=== PATIENT | male | born 1945 | race Caucasian/White ===

== ENCOUNTER 2017-02-05 17:06 | Emergency (ER) | payer MEDICARE, BC ==
[2017-02-05 17:25] VITALS: BP 154/64
--- NOTE | 2017-02-05 18:02 | UC ---
Complaint Male HPI - HPI Summary HPI Summary: ONSET OF BECKY HEMATURIA THIS MORNING WITH CLOTS. NO DYSURIA. HAS SOME URINARY FREQUENCY AND URGENCY AT BASELINE THAT HE FEELS MAY BE A BIT WORSE THAN NORMAL. HAS HAD SOME INTERMITTENT BACK PAIN FOR SEVERAL WEEKS THAT RESOLVES WITH MASSAGE. STARTED PIOGLITAZONE ABOUT 4 WEEKS AGO FOR HIS DIABETES. STATES HIS PCP ADVISED HIM THAT HE HAS PROTEIN IN HIS URINE ABOUT 6 MONTHS AGO. PT USED TO SEE UROLOGIST IN [place] FOR HIS PROSTATE CANCER BUT WILL BE TRANSFERRING CARE TO LOCAL UROLOGIST. - History of Current Complaint Chief Complaint: UCGU Stated Complaint: BLOOD IN URINE Time Seen by Provider: 02/05/17 17:32 Hx Obtained From: Patient, Family/Mechanical Intern - DAUGHTER Onset/Duration: Sudden Onset, Lasting Hours, Still Present Severity Initially: Moderate Severity Currently: Moderate Pain Intensity: 0 Pain Scale Used: 0-10 Numeric Aggravating Factor(s): Nothing Alleviating Factor(s): Nothing Associated Signs And Symptoms: Positive: Back Pain, Hematuria - Allergies/Home Medications Allergies/Adverse Reactions: Allergies Allergy/AdvReac Type Severity Reaction Status Date / Time No Known Allergies Allergy Verified 02/05/17 17:25 Home Medications: Home Medications Aspirin Low Dose CHEW TAB* [Aspirin Low Dose TAB*] 81 mg PO DAILY 02/05/17 [ History Confirmed 02/05/17] Pioglitazone TAB* [Actos TAB*] 30 mg PO DAILY 02/05/17 [History Confirmed ] Rosuvastatin Calcium [Crestor] 40 mg PO DAILY 02/05/17 [History Confirmed ] Valsartan TAB* [Diovan TAB*] 320 mg PO DAILY 02/05/17 [History Confirmed ] metFORMIN* [Glucophage 500 MG TAB *] 500 mg PO BID 02/05/17 [History Confirmed 02/05/17] PMH/Surg Hx/FS Hx/Imm Hx Endocrine History: Diabetes Cardiovascular History: Cardiac Disease, Hypertension Cancer History: Prostate Cancer - Surgical History Surgical History: Yes Surgery Procedure, Year, and Place: PROSTATECTOMY, RIGHT MIDDLE FINGER AMPUTATION, VASECTOMY AND REVERSAL, DENTAL SURGERY - Family History Known Family History: Positive: Hypertension - Social History Alcohol Use: Occasionally Substance Use Type: None Smoking Status (MU): Never Smoked Tobacco Review of Systems Constitutional: Negative Skin: Negative Respiratory: Negative Cardiovascular: Negative Gastrointestinal: Negative Genitourinary: Hematuria, Frequency, Urgency Musculoskeletal: Other: - INTERMITTENT LOW BACK PAIN All Other Systems Reviewed And Are Negative: Yes Physical Exam Triage Information Reviewed: Yes Appearance: Well-Appearing, No Pain Distress, Well-Nourished Vital Signs: Initial Vital Signs Temp 97.5 F 02/05/17 17:19 Pulse 66 02/05/17 17:19 Resp 16 02/05/17 17:19 BP 154/64 02/05/17 17:19 Pulse Ox 99 02/05/17 17:19 Vital Signs Reviewed: Yes Eyes: Positive: Conjunctiva Clear ENT: Positive: Hearing grossly normal Neck: Positive: Supple Respiratory Exam: Normal Cardiovascular Exam: Normal Abdomen Description: Positive: Nontender, Soft. Negative: CVA Tenderness (R), CVA Tenderness (L), Distended, Guarding Bowel Sounds: Positive: Present Musculoskeletal: Positive: No Edema Neurological: Positive: Alert Psychological: Positive: Normal Response To Family, Age Appropriate Behavior Skin: Negative: rashes Diagnostics - Laboratory Diagnostic Studies Completed/Ordered: URINE DIP SP. GR 1.005, 2+ PROTEIN, 3+ BLOOD Complaint Male Course/Dx - Course Course Of Treatment: ADVISED TO GO DIRECTLY TO THE ER FOR FURTHER EVALUATION. - Differential Dx/Diagnosis Differential Diagnosis/HQI/PQRI: Cancer, Trauma, Ureteral Calculi, Urinary Tract Infection Provider Diagnoses: GROSS HEMATURIA Discharge - Discharge Plan Condition: Stable Disposition: OTHER Discharge Disposition Comment: GO DIRECTLY TO [facility] Patient Education Materials: Hematuria (ED) Referrals: Osiris Mora MD [Primary Care Provider] - If Needed Additional Instructions: YOU HAVE BECKY BLOOD IN YOUR URINE. THIS NEEDS TO BE FURTHER EVALUATED. PLEASE GO DIRECTLY TO THE ER.
== END 2017-02-05 18:54 ==
LOC: UCEAST 17:06
DX: R31.9 Hematuria, unspecified (principal); E11.9 Type 2 diabetes mellitus without complications; Z79.84 Long term (current) use of oral hypoglycemic drugs; I10 Essential (primary) hypertension; I51.9 Heart disease, unspecified
CPT/HCPCS: 81003; 99211; G0463

== ENCOUNTER 2017-02-05 19:14 | Emergency (ER) | payer MEDICARE, BC ==
[2017-02-05] MEDS ORDERED: NS 0.9% 1000 ML* 1,000 ML IV ONE ×2 (20:00→20:28)
[2017-02-05 20:39] LABS: Urine Bacteria 1+ (Absent); Urine Bilirubin Negative (Negative); Urine Glucose Negative (Negative); Urine Nitrite Negative (Negative)
--- NOTE | 2017-02-05 21:02 | RAD ---
INDICATION: Hematuria noticed today. COMPARISON: March 17, 2015 lumbar spine radiographs TECHNIQUE: Multidetector CT images were obtained from the lung bases to the ischial tuberosities. Evaluation of the viscera is limited without IV contrast. Multiplanar reformation. REPORT: Unremarkable visualized inferior thorax. A few small water density hepatic cysts are noted. No suspicious hepatic lesions evident within limits of noncontrast CT. No CT abnormality of the unenhanced gallbladder or pancreas. Small calcified granulomas at the spleen. Negative for CT abnormality of the upper GI, small bowel, or retro to infra cecal appendix. Mild colonic diverticulosis without evidence for acute diverticulitis. Negative for ascites, free air, hernias. Normal adrenal glands. Unremarkable kidneys. Negative for nephrolithiasis or hydronephrosis. Unremarkable nondilated ureters. Multiple phleboliths visualized adjacent to the distal ureters. 2.9 x 4.2 x 4.0 cm LEFT para midline posterior urinary bladder diverticulum above the level of the ureterovesicular junction. Minimal reticulation of the surrounding pelvic fat. Negative for gas within the urinary bladder. Generalized mild prominence of the urinary bladder wall. Post prostatectomy. Negative for lymphadenopathy. Atherosclerotic calcification of normal diameter abdominal aorta and iliac arteries. Physiologic distention of the IVC. Unchanged grade 2 degenerative L4-L5 anterolisthesis. Advanced L4-L5 degenerative spondylosis with associated reactive endplate change. No suspicious focal osseous lesions evident. IMPRESSION: 1. Negative for urolithiasis or hydronephrosis. 2. 2.9 x 4.2 x 4.0 cm LEFT para midline posterior urinary bladder diverticulum above the level of the ureterovesicular junction. Minimal reticulation of the surrounding pelvic fat. Negative for gas within the urinary bladder. Generalized mild prominence of the urinary bladder wall. Consider cystitis. Correlate with urinalysis.
[2017-02-05 21:24] LABS: Hematocrit 39 % (42-52); Hemoglobin 12.9 g/dl (14.0-18.0); Mean Corpuscular HGB Conc 33 g/dl (31-36); Mean Corpuscular Hemoglobin 31 pg (27-31); Mean Corpuscular Volume 93 fL (80-94); Mean Platelet Volume 8 um3 (7.4-10.4); Red Blood Count 4.14 10^6/ul (4.0-5.4); Red Cell Distribution Width 13 % (10.5-15); White Blood Count 4.6 10^3/ul (3.5-10.8)
[2017-02-05 21:42] LABS: ALT 24 U/L (7-52); AST 19 U/L (13-39); Albumin 3.9 g/dL (3.2-5.2); Alkaline Phosphatase 43 U/L (34-104); Anion Gap 6 mmol/L (2-11); Blood Urea Nitrogen 19 mg/dL (6-24); C Reactive Protein < 1.00 mg/L (< 5.00); CO2 Carbon Dioxide 27 mmol/L (22-32); Calcium 9.2 mg/dL (8.6-10.3); Chloride 103 mmol/L (101-111); EGFR African American 94.7 (>60); EGFR Non-African American 73.7 (>60); Globulin 2.6 g/dL (2-4); Glucose 89 mg/dL (70-100); Sodium 136 mmol/L (133-145); Total Protein 6.5 g/dL (6.4-8.9)
[2017-02-05] MEDS ORDERED: Iodixanol* (CONTRAST) 320 MG/ML 100 ML SDV IV ONE (21:49)
[2017-02-05] MEDS ORDERED: Ciprofloxacin TAB* 500 MG PO ONE (23:48)
--- NOTE | 2017-02-05 23:56 | ED ---
I, Oh,Cristela, scribed for Gisel Rivers MD on 02/05/17 at 1957 . GI/ HPI - HPI Summary HPI Summary: This 72 y/o male presents to ED for "bright red" hematuria that was noticed this morning. Negative dysuria. Pt was evaluated at [facility] and had urine dip stick done. Pt was sent to ED for further UA and blood work. PMHx includes prostate CA s/p removal, HTN, and vasectomy. Pt is currently on baby blood ASA, but not on any other blood thinner. Primary care involves Dr. Mora and Dr. Gleason. FHx is positive for HTN. Pt lives with his . He is rare drinker and nonsmoker. - History of Current Complaint Chief Complaint: EDUrogenitalProblems Stated Complaint: BLOOD IN URINE Hx Obtained From: Patient, Medical Records Onset/Duration: Started Hours Ago, Atraumatic, Still Present Timing: Constant Pain Intensity: 0 Associated Signs and Symptoms: Negative: Fever, Dysuria Aggravating Factor(s): Nothing Alleviating Factor(s): Nothing - Allergy/Home Medications Allergies/Adverse Reactions: Allergies Allergy/AdvReac Type Severity Reaction Status Date / Time No Known Allergies Allergy Verified 02/05/17 17:25 PMH/Surg Hx/FS Hx/Imm Hx Endocrine/Hematology History: Reports: Hx Diabetes Cardiovascular History: Reports: Hx Hypertension Musculoskeletal History: Denies: Hx Scoliosis Neurological History: Denies: Hx Headaches, Other Neuro Impairments/Disorders - Cancer History Cancer Type, Location and Year: PROSTATE CA - Surgical History Surgery Procedure, Year, and Place: PROSTATECTOMY, RIGHT MIDDLE FINGER AMPUTATION, VASECTOMY AND REVERSAL, DENTAL SURGERY Infectious Disease History: Denies: Traveled Outside the [place] in Last 30 Days - Family History Known Family History: Positive: Hypertension - Social History Alcohol Use: Occasionally Substance Use Type: Reports: None Smoking Status (MU): Never Smoked Tobacco Review of Systems Negative: Fever Positive: hematuria. Negative: dysuria All Other Systems Reviewed And Are Negative: Yes Physical Exam Triage Information Reviewed: Yes Vital Signs On Initial Exam: Initial Vitals Temp Pulse Resp BP Pulse Ox 98.2 F 57 14 151/65 100 02/05/17 19:22 02/05/17 19:22 02/05/17 19:22 02/05/17 19:22 02/05/17 19:22 Vital Signs Reviewed: Yes Appearance: Positive: Well-Appearing, No Pain Distress Skin: Positive: Warm, Skin Color Reflects Adequate Perfusion, Dry Head/Face: Positive: Normal Head/Face Inspection Eyes: Positive: EOMI, DAO Neck: Positive: Supple, Nontender Respiratory/Lung Sounds: Positive: Clear to Auscultation, Breath Sounds Present Cardiovascular: Positive: RRR Abdomen Description: Positive: Nontender, Soft Musculoskeletal: Positive: Strength/ROM Intact Neurological: Positive: Sensory/Motor Intact, Alert, Oriented to Person Place, Time Psychiatric: Positive: Affect/Mood Appropriate AVPU Assessment: Alert Diagnostics - Vital Signs Vital Signs Temp Pulse Resp BP Pulse Ox 02/05/17 19:22 98.2 F 57 14 151/65 100 - Laboratory Lab Results: Lab Results 02/05/17 02/05/17 02/05/17 Range/Units 20:26 21:16 21:16 WBC 4.6 (3.5-10.8) 10^3/ul RBC 4.14 (4.0-5.4) 10^6/ul Hgb 12.9 L (14.0-18.0) g/dl Hct 39 L (42-52) % MCV 93 (80-94) fL MCH 31 (27-31) pg MCHC 33 (31-36) g/dl RDW 13 (10.5-15) % Plt Count 163 (150-450) 10^3/ul MPV 8 (7.4-10.4) um3 Sodium 136 (133-145) mmol/L Potassium 4.0 (3.5-5.0) mmol/L Chloride 103 (101-111) mmol/L Carbon Dioxide 27 (22-32) mmol/L Anion Gap 6 (2-11) mmol/L BUN 19 (6-24) mg/dL Creatinine 1.00 (0.67-1.17) mg/dL Est GFR ( Amer) 94.7 (>60) Est GFR (Non-Af Amer) 73.7 (>60) BUN/Creatinine Ratio 19.0 (8-20) Glucose 89 (70-100) mg/dL Calcium 9.2 (8.6-10.3) mg/dL Total Bilirubin 0.50 (0.2-1.0) mg/dL AST 19 (13-39) U/L ALT 24 (7-52) U/L Alkaline Phosphatase 43 (34-104) U/L C-Reactive Protein < 1.00 (< 5.00) mg/L Total Protein 6.5 (6.4-8.9) g/dL Albumin 3.9 (3.2-5.2) g/dL Globulin 2.6 (2-4) g/dL Albumin/Globulin Ratio 1.5 (1-3) Urine Color Yellow Urine Appearance Cloudy Urine pH 5.0 (5-9) Ur Specific [place] 1.009 L (1.010-1.030) Urine Protein 1+(30 mg/dl) H (Negative) Urine Ketones Negative (Negative) Urine Blood 3+ H (Negative) Urine Nitrate Negative (Negative) Urine Bilirubin Negative (Negative) Urine Urobilinogen Negative (Negative) Ur Leukocyte Esterase Negative (Negative) Urine WBC (Auto) 1+(6-10/hpf) H (Absent) Urine RBC (Auto) 3+(>10/hpf) H (Absent) Urine Bacteria 1+ H (Absent) Urine Glucose Negative (Negative) Result Diagrams: 02/05/17 21:16 02/05/17 21:16 Lab Statement: Any lab studies that have been ordered have been reviewed, and results considered in the medical decision making process. - CT Ab/P W/O CT Interpretation: Positive (See Comments) - 1. Negative for urolithiasis or hydronephrosis. 2. 2.9 x 4.2 x 4.0 cm LEFT para midline posterior urinary bladder diverticulum above the level of the ureterovesicular junction. Minimal reticulation of the surrounding pelvic fat. Negative for gas within the urinary bladder. Generalized mild prominence of the urinary bladder wall. Consider cystitis. Correlate with urinalysis. CT Interpretation Completed By: Radiologist Ab/P W/ CT Interpretation: No Acute Changes CT Interpretation Completed By: Radiologist Re-Evaluation - Re-Evaluation First Eval Re-Evaluation Time: 23:50 Comment: in room to update pt on CT imaigng results, and Plan of care involving outpatient f/u with Dr. Quinones. GIGU Course/Dx - Course Course Of Treatment: Consultation: Dr. Quinones (Urology) at 2019 PM. W/ and W/ O IV contrast. pt with ct with without showing mild evidence of cystitis and bacteria in the urine pt started on cipro will f/u with urology and get a cystoscopy - Diagnoses Provider Diagnoses: Hematuria due to acute cystitis - Physician Notifications Discussed Care Of Patient With: Michael Quinones Time Discussed With Above Provider: 20:19 Discharge - Discharge Plan Condition: Stable Disposition: HOME Prescriptions: Ciprofloxacin TAB* [Cipro 500 MG TAB*] 500 mg PO BID #14 tab Patient Education Materials: Ciprofloxacin (By mouth), Urinary Tract Infection in Men (ED), Hematuria (ED) Referrals: Osiris Mora MD [Primary Care Provider] - 2 Days Michael Quinones MD [Medical Doctor] - 2 Days The documentation as recorded by the Avi lowery Soohyun accurately reflects the service I personally performed and the decisions made by me, Gisel Rivers MD.
[2017-02-06 00:09] VITALS: BP 138/69
--- NOTE | 2017-02-06 10:34 | RAD ---
INDICATION: Hematuria. COMPARISON: Noncontrast CT of the same date. TECHNIQUE: Multidetector CT images were obtained from the lung bases to the ischial tuberosities with 140 mL Visipaque 320 IV contrast. No oral contrast administered. Multiplanar reformation. REPORT: Few benign morphology hepatic cysts. No suspicious focal hepatic lesions. No CT abnormality of the gallbladder pancreas, spleen. Negative for CT abnormality of the upper GI, small bowel, or appendix visualized medial to the cecum. No suspicious abnormality of the colon. Negative for ascites, free air. Small periumbilical fat-containing hernia without inflammatory change. Normal adrenal glands. Unremarkable kidneys with symmetric nephrograms and pyelograms. No suspicious focal renal lesions, conspicuous stones, or hydronephrosis. Unremarkable nondilated ureters. 2.9 x 4.2 x 4.0 cm LEFT para midline posterior urinary bladder diverticulum above the level of the ureterovesicular junction. Minimal reticulation of the surrounding pelvic fat. Negative for gas within the urinary bladder. No visualized generalized or focal mural thickening of the urinary bladder wall. Post prostatectomy. Negative for lymphadenopathy. Mild calcific plaque of normal diameter abdominal aorta and iliac arteries. Physiologic distention of the IVC. Negative for suspicious focal osseous lesions. Polyarticular degenerative arthropathy with associated reactive endplate change most prominent at the inferior endplate of L4. Degenerative grade 1 L4-L5 anterolisthesis. IMPRESSION: 1. Based on correlation with the preceding noncontrast CT there is no urolithiasis. Negative for hydronephrosis. No renal cortical lesion or visualized lesion of the uroepithelium of the kidneys, ureter or urinary bladder within limits of routine contrast-enhanced CT without full pyelographic phase series. 2. 2.9 x 4.2 x 4.0 cm LEFT para midline posterior urinary bladder diverticulum above the level of the ureterovesicular junction. Minimal reticulation of the surrounding pelvic fat. Consider cystitis. Correlate with urinalysis.
== END 2017-02-06 00:09 | disposition home or self-care (01) ==
LOC: ED 19:14
DX: N30.01 Acute cystitis with hematuria (principal); N32.3 Diverticulum of bladder; E11.9 Type 2 diabetes mellitus without complications; I10 Essential (primary) hypertension; Z85.46 Personal history of malignant neoplasm of prostate; Z90.79 Acquired absence of other genital organ(s); Z89.021 Acquired absence of right finger(s)
CPT/HCPCS: 36415; 74176; 74177; 80053; 81003; 81015; 85027; 86140; 87086; 96360; 99283; A9270-GY; Q9967

== ENCOUNTER 2019-02-12 13:04 | Emergency (ER) | payer MEDICARE, BC ==
[2019-02-12 15:30] LABS: ABS Eosinophils 0.1 10^3/ul (0-0.6); ABS Lymphocytes 1.2 10^3/ul (1.0-4.8); ABS Monocytes 0.5 10^3/ul (0-0.8); ABS Neutrophils 3.4 10^3/ul (1.5-7.7); Eosinophil % 2.7 %; Hematocrit 37 % (42-52); Hemoglobin 12.7 g/dL (14.0-18.0); Lymphocyte % 22.7 %; Mean Corpuscular HGB Conc 35 g/dL (31-36); Mean Corpuscular Hemoglobin 32 pg (27-31); Mean Corpuscular Volume 93 fL (80-94); Mean Platelet Volume 7.2 fL (7.4-10.4); Platelet Count 227 10^3/uL (150-450); Red Blood Count 3.95 10^6 /uL (4.18-5.48); Red Cell Distribution Width 13 % (10-15); White Blood Count 5.4 10^3/uL (3.5-10.8)
[2019-02-12 15:39] LABS: INR 1.1 (0.82-1.09)
[2019-02-12 15:50] LABS: Troponin I 0.01 ng/mL (<0.04)
[2019-02-12 16:11] LABS: Albumin 4.1 g/dL (3.2-5.2); Albumin/Globulin Ratio 1.5 (1-3); BUN/Creatinine Ratio 21.6 (8-20); Calcium 9.3 mg/dL (8.6-10.3); EGFR African American 78.6 (>60); EGFR Non-African American 64.9 (>60); Globulin 2.8 g/dL (2-4); Potassium 4.9 mmol/L (3.5-5.0); Total Bilirubin 0.5 mg/dL (0.2-1.0); Total Protein 6.9 g/dL (6.4-8.9)
--- NOTE | 2019-02-12 17:41 | ED ---
Abdominal Pain/Male - HPI Summary HPI Summary: This patient is a 74 year old M presenting to [facility] [place] by with a chief complaint of intermittent worsening aching left rib pain since 02/01/19. Pt says he was in a restaurant today, when the pain began. Around 12:00 the pain started to worsen. Pt reports he was told many years ago that he may have had an UT that he didnt know about on EKG. Pt has no Hx of blood clots. Pt has a PSHx of prostatectomy. Symptoms aggravated by nothing, denies exertional CP or CASTRO. Symptoms alleviated by tums. Patient denies SOB, pain in arm, and pain in RUQ of abdomen. Per triage, the patient rates the pain 7/10 but currently he state it is a dull discomfort in his L chest/lateral ribs. Reports he had a negative stress test several years ago. Patient follows with Dr. Kwok - History of Current Complaint Chief Complaint: EDChestPainROMI Stated Complaint: UPPER LEFT SIDE ABD PAIN PER PT Time Seen by Provider: 02/12/19 16:57 Hx Obtained From: Patient Onset/Duration: Lasting Weeks, Still Present Timing: Intermittent Severity Initially: Mild Severity Currently: Moderate Pain Intensity: 7 Pain Scale Used: Adult Non Verbal Location: Other - upper left abdomen pain Radiates: No Character: Other: - aching Aggravating Factor(s): Nothing Alleviating Factor(s): Antacids Associated Signs And Symptoms: Negative: Chest Pain - Allergies/Home Medications Allergies/Adverse Reactions: Allergies Allergy/AdvReac Type Severity Reaction Status Date / Time No Known Allergies Allergy Verified 02/05/17 17:25 PMH/Surg Hx/FS Hx/Imm Hx Endocrine/Hematology History: Reports: Hx Diabetes Cardiovascular History: Reports: Hx Hypertension Musculoskeletal History: Denies: Hx Scoliosis Neurological History: Denies: Hx Headaches, Other Neuro Impairments/Disorders - Cancer History Cancer Type, Location and Year: PROSTATE CA - Surgical History Surgery Procedure, Year, and Place: PROSTATECTOMY, RIGHT MIDDLE FINGER AMPUTATION, VASECTOMY AND REVERSAL, DENTAL SURGERY Infectious Disease History: No Infectious Disease History: Denies: Traveled Outside the [place] in Last 30 Days - Family History Known Family History: Positive: Hypertension - Social History Alcohol Use: Occasionally Substance Use Type: Reports: None Smoking Status (MU): Never Smoked Tobacco Review of Systems Negative: Chest Pain Negative: Shortness Of Breath Positive: Abdominal Pain - pos - LUQ; neg - RUQ Negative: Other - neg - arm pain All Other Systems Reviewed And Are Negative: Yes Physical Exam - Summary Physical Exam Summary: Constitutional: Well-developed, Well-nourished, Alert. (-) Distressed Skin: Warm, Dry HENT: Normocephalic; Atraumatic Eyes: Conjunctiva normal Neck: Musculoskeletal ROM normal neck. (-) JVD, (-) Stridor, (-) Nuchal rigidity Cardio: Rhythm regular, rate normal, Heart sounds normal; Intact distal pulses; Radial pulses are 2+ and symmetric. (-) Murmur Pulmonary/Chest wall: Effort normal. (-) Respiratory distress, (-) Wheezes, (-) Rales Abd: Soft, (-) tenderness, (-) Distension, (-) Guarding, (-) Rebound Musculoskeletal: (-) Edema Lymph: (-) Cervical adenopathy Neuro: Alert, Oriented x3 Psych: Mood and affect Normal Triage Information Reviewed: Yes Vital Signs On Initial Exam: Initial Vitals Temp Pulse Resp BP Pulse Ox 98.8 F 73 18 171/61 99 02/12/19 13:07 02/12/19 13:07 02/12/19 13:07 02/12/19 13:07 02/12/19 13:07 Vital Signs Reviewed: Yes Diagnostics - Vital Signs Vital Signs Temp Pulse Resp BP Pulse Ox 02/12/19 15:20 97.5 F 70 18 155/68 98 02/12/19 13:07 98.8 F 73 18 171/61 99 - Laboratory Lab Results: Lab Results 02/12/19 02/12/19 02/12/19 Range/Units 15:17 15:17 15:17 WBC 5.4 (3.5-10.8) 10^3/uL RBC 3.95 L (4.18-5.48) 10^6 /uL Hgb 12.7 L (14.0-18.0) g/dL Hct 37 L (42-52) % MCV 93 (80-94) fL MCH 32 H (27-31) pg MCHC 35 (31-36) g/dL RDW 13 (10-15) % Plt Count 227 (150-450) 10^3/uL MPV 7.2 L (7.4-10.4) fL Neut % (Auto) 63.7 % Lymph % (Auto) 22.7 % [place] % (Auto) 10.0 % Eos % (Auto) 2.7 % Baso % (Auto) 0.9 % Absolute Neuts (auto) 3.4 (1.5-7.7) 10^3/ul Absolute Lymphs (auto) 1.2 (1.0-4.8) 10^3/ul Absolute Monos (auto) 0.5 (0-0.8) 10^3/ul Absolute Eos (auto) 0.1 (0-0.6) 10^3/ul Absolute Basos (auto) 0.0 (0-0.2) 10^3/ul Absolute Nucleated RBC 0.0 10^3/ul Nucleated RBC % 0.0 INR (Anticoag Therapy) 1.10 H (0.82-1.09) Sodium 140 (135-145) mmol/L Potassium 4.9 (3.5-5.0) mmol/L Chloride 105 (101-111) mmol/L Carbon Dioxide 28 (22-32) mmol/L Anion Gap 7 (2-11) mmol/L BUN 24 (6-24) mg/dL Creatinine 1.11 (0.67-1.17) mg/dL Est GFR ( Amer) 78.6 (>60) Est GFR (Non-Af Amer) 64.9 (>60) BUN/Creatinine Ratio 21.6 H (8-20) Glucose 173 H (70-100) mg/dL Calcium 9.3 (8.6-10.3) mg/dL Total Bilirubin 0.50 (0.2-1.0) mg/dL AST 18 (13-39) U/L ALT 20 (7-52) U/L Alkaline Phosphatase 64 (34-104) U/L Troponin I 0.01 (<0.04) ng/mL Total Protein 6.9 (6.4-8.9) g/dL Albumin 4.1 (3.2-5.2) g/dL Globulin 2.8 (2-4) g/dL Albumin/Globulin Ratio 1.5 (1-3) Result Diagrams: 02/12/19 15:17 02/12/19 15:17 Lab Statement: Any lab studies that have been ordered have been reviewed, and results considered in the medical decision making process. - Radiology CXR Radiology Interpretation Completed By: ED Physician Summary of Radiographic Findings: CXR reveals, per ED physician, no acute abnormalities. Pending official report. - EKG 13:09 Cardiac Rate: NL EKG Rhythm: Sinus Rhythm Summary of EKG Findings: An EKG at 1309 reveals normal sinus rhythm 68 pm, nml axis, nml intervals. No STEMI. No acute changes. Re-Evaluation - Re-Evaluation First Eval Re-Evaluation Time: 19:13 Comment: Updated patient on negative troponin, normal x-ray and labs. Patient states that he feels better after burping. Pain could be atypical and secondary to GERD however given his risk factors he will follow up with cardiology in the next 1-2 days and arrange a stress test. Abdominal Pain Male Course/Dx - Course Course Of Treatment: 74 y/o male w hx ?UT in past, p/w L side rib/CP intermittent. Chest Pain DDX: The patient is well appearing, with stable vitals. Given the patient's clinical presentation, highest on differential is atypical CP. Although less likely, differential also includes the following: - -Pneumothorax: Equal breath sounds, story inconsistent since gradual onset of symptoms. CXR shows no evidence of pneumothorax. Unlikely. --Mediastinitis or esophageal rupture: The history is not consistent, as the patient has had no recent history of significant wretching, instrumentation, or mediastinal surgeries. Unlikely. --Aortic dissection: The patient does not describe the classical tearing chest pain radiating into the back, and the CXR does not show mediastinal widening or other signs of aortic dissection. Unlikely. --PE: Vitals wnl (not hypoxic, tachycardic or tachypneic). --ACS: The initial EKG shows no ischemic changes. The initial troponin is not elevated x2 - Diagnoses Provider Diagnoses: Chest pain - Provider Notifications Discussed Care Of Patient With: Romario Rosenthal Time Discussed With Above Provider: 19:11 Instructed by Provider To: Other - Discussed case with Dr. Rosenthal, who states patient can call office tomorrow to make in appointment for stress in the next 1 -2 days. Discharge - Sign-Out/Discharge Documenting (check all that apply): Patient Departure - Discharge Patient Received Moderate/Deep Sedation with Procedure: No - Discharge Plan Condition: Stable Disposition: HOME Patient Education Materials: Chest Pain (ED) Referrals: Osiris Mora MD [Primary Care Provider] - Romario Rosenthal MD [Medical Doctor] - 2 Days Additional Instructions: You were seen in the emergency department for chest pain. Your troponin which is your heart enzyme was normal 2. Your EKG did not show any new changes. Please follow up with cardiology in the next 1-2 days to arrange stress test If any studies were not completed at the time of discharge you will be called with the relevant results. Please follow up with your primary care doctor in next 2-3 days and return to emergency department for worsening chest pain, trouble breathing or concerning symptoms. - Billing Disposition and Condition Condition: STABLE Disposition: Home - Attestation Statements Document Initiated by Jennifer: Yes Documenting Scribe: Nicole Tabares Provider For Whom Jennifer is Documenting (Include Credential): Dr. Lianne Bermudez MD Scribe Attestation: Nicole Camarillo scribed for Dr. Lianne Bermudez MD on 02/12/19 at 2204. Scribe Documentation Reviewed: Yes Provider Attestation: The documentation as recorded by the Nicole lowery accurately reflects the service I personally performed and the decisions made by me, Dr. Lianne Bermudez MD Status of Scribsaritha Document: Viewed
[2019-02-12 19:41] VITALS: BP 169/81
== END 2019-02-12 19:40 | disposition home or self-care (01) ==
LOC: ED 13:04
DX: R07.89 Other chest pain (principal); R10.12 Left upper quadrant pain; E11.9 Type 2 diabetes mellitus without complications; I10 Essential (primary) hypertension; Z85.46 Personal history of malignant neoplasm of prostate
CPT/HCPCS: 36415; 71046; 80053; 84484; 85025; 85610; 93005; 99282